=== PATIENT | female | born 1990 | race Asian ===

== ENCOUNTER 2018-01-14 12:22 | Emergency (ER) | payer OTHER ==
[~2018-01-14] VITALS: Ht 157.5 cm; Wt 47.6 kg
[2018-01-14 12:22] VITALS: BP 119/65
[2018-01-14] MEDS ORDERED: IBUPROFEN 600 MG TABLET PO ONE ×2 (12:42→13:00)
== END 2018-01-14 13:25 | disposition home or self-care (01) ==
LOC: ER 12:24
DX: S20.212A Contusion of left front wall of thorax, initial encounter (principal); V49.59XA Passenger injured in collision with other motor vehicles in traffic accident, initial encounter; Y93.89 Activity, other specified; Y92.413 State road as the place of occurrence of the external cause; Y99.8 Other external cause status
CPT/HCPCS: 71100-TC; A4606; Z7610